=== PATIENT | male | born 1960 | race Caucasian/White ===

== ENCOUNTER 2023-03-28 01:48 | Inpatient (IN) ==
[2023-03-28] MEDS ORDERED: Heparin DRIP 25,000 UNITS BAG 25,000 UNITS/500 ML BAG IV SCH ×3 (02:45→03:15)
[2023-03-28 02:49] LABS: ABS Basophils 0.1 10^3/uL (0.0-0.1); ABS Eosinophils 0.3 10^3/uL (0.0-0.5); ABS Lymphocytes 2.6 10^3/uL (1.0-4.8); ABS Monocytes 0.4 10^3/uL (0.0-1.1); ABS Neutrophils 4.2 10^3/uL (1.5-7.6); Eosinophil % 3.7 %; Hematocrit 33.9 % (38-53); Hemoglobin 11.6 g/dL (13.2-16.3); Lymphocyte % 34.5 %; Mean Corpuscular Hemoglobin 34.3 pg (27-33); Mean Corpuscular Hgb Conc 34.4 g/dL (31-36); Mean Corpuscular Volume 99.8 fL (80-97); Mean Platelet Volume 7.1 fL (7.5-11.2); Platelet Count 248 10^3/uL (150-450); Red Cell Distribution Width 14.5 % (12-17); White Blood Count 7.6 10^3/uL (3.6-10.2)
[2023-03-28] MEDS ORDERED: Heparin 5000 UNITS/ML 1 mL VIAL IV SCH (03:00)
[2023-03-28] MEDS ORDERED: Pantoprazole VIAL 40 MG VIAL IV ONE (03:01)
[2023-03-28 03:05] LABS: Albumin 3.9 g/dL (3.2-5.2); Albumin/Globulin Ratio 1.7 (1-3); Calcium 9.2 mg/dL (8.6-10.3); Creatinine, Serum 0.9 mg/dL (0.67-1.17); Globulin 2.3 g/dL (2-4); Potassium 4.6 mmol/L (3.5-5.0); Total Bilirubin 0.3 mg/dL (0.2-1.0); Total Protein 6.2 g/dL (6.4-8.9); eGFR CKD-EPI 97.2 (>60)
[2023-03-28 03:28] LABS: Magnesium 1.5 mg/dL (1.9-2.7)
[2023-03-28 03:34] LABS: HDL Cholesterol 34.3 mg/dL; Phosphorus 2.7 mg/dL (2.5-5.0)
[2023-03-28] MEDS ORDERED: Magnesium Sulf 4 GM/100 ML IV 4,000 MG/100 ML BAG IVPB ONE (03:39)
[2023-03-28] MEDS ORDERED: Dextrose 50% Syringe 50 ml 25 GM/50 ML SYRINGE IV PUSH PRN (03:46)
[2023-03-28] MEDS ORDERED: nitroGLYCERIN DRIP 25,000 MCG/250 ML BTL IV SCH (04:00)
[2023-03-28 04:18] LABS: High Sensitivity Troponin 1 Hr 3046 pg/mL (<20)
[2023-03-28] MEDS ORDERED: Nicotine PATCH 21 MG/24 HR PATCH TRANSDERM SCH (08:00)
[2023-03-28] MEDS ORDERED: Sulfur Hexaflouride MICROSPHR 25 MG VIAL ONE (08:28)
[2023-03-28 10:25] LABS: Calcium 8.9 mg/dL (8.6-10.3); Creatinine, Serum 0.76 mg/dL (0.67-1.17); Magnesium 1.9 mg/dL (1.9-2.7); Potassium 4.3 mmol/L (3.5-5.0); eGFR CKD-EPI 102.3 (>60)
[2023-03-28] MEDS ORDERED: VERAPAMIL 2.5 MG/ML 2 ML VIAL ** 5 mg/2 ml ONE (10:58)
[2023-03-28] MEDS ORDERED: Midazolam 5 mg/5 ml VIAL 1 mg/ml 5 ml VIAL (5 mg) ONE (10:58)
[2023-03-28] MEDS ORDERED: Heparin 2 UNITS/ML 1000 mls 1,000 ML IV ONE ×2 (10:58→12:19)
[2023-03-28] MEDS ORDERED: Heparin 1,000 UNIT/ML 10 ml (10,000 UNITS) CATHLAB/DIALYSIS ONE (10:58)
[2023-03-28] MEDS ORDERED: Iohexol 350 (CONTRAST) 200 ML MDV IV ONE (10:59)
[2023-03-28] MEDS ORDERED: nitroGLYCERIN DRIP 25,000 MCG/250 ML BTL ONE (10:59)
[2023-03-28] MEDS ORDERED: Lidocaine 1% MPF 5 ML VIAL ONE (10:59)
[2023-03-28 11:48] LABS: Folate 11.1 ng/mL (5.90-24.80)
[2023-03-28] MEDS ORDERED: Bivalirudin 250 MG VIAL ONE ×2 (12:10→12:50)
[2023-03-28 13:14] LABS: TSH Ultra Thyroid Stim Horm 1.14 mcIU/mL (0.34-5.60)
[2023-03-28 13:15] LABS: Free T3 3.5 pg/mL (2.5-3.9)
[2023-03-28 13:16] LABS: Free T4 0.83 ng/dL (0.61-1.12)
[2023-03-28 13:21] LABS: Ferritin 57.3 ng/mL (24-336)
[2023-03-28] MEDS ORDERED: NS 0.9% 1000 ml BAG 1,000 ML IV SCH (13:30)
[2023-03-28] MEDS ORDERED: Nicotine PATCH 21 MG/24 HR PATCH ONE (16:47)
[2023-03-29 05:26] LABS: ABS Basophils 0.1 10^3/uL (0.0-0.1); ABS Eosinophils 0.2 10^3/uL (0.0-0.5); ABS Lymphocytes 1.9 10^3/uL (1.0-4.8); ABS Monocytes 0.4 10^3/uL (0.0-1.1); ABS Neutrophils 3.2 10^3/uL (1.5-7.6); Eosinophil % 2.7 %; Hematocrit 32.9 % (38-53); Hemoglobin 11.3 g/dL (13.2-16.3); Lymphocyte % 32.9 %; Mean Corpuscular Hemoglobin 34.2 pg (27-33); Mean Corpuscular Hgb Conc 34.4 g/dL (31-36); Mean Corpuscular Volume 99.2 fL (80-97); Mean Platelet Volume 6.9 fL (7.5-11.2); Platelet Count 219 10^3/uL (150-450); Red Blood Count 3.32 10^6/uL (4.06-5.63); Red Cell Distribution Width 14.5 % (12-17); White Blood Count 5.7 10^3/uL (3.6-10.2)
[2023-03-29 05:42] LABS: Albumin 3.6 g/dL (3.2-5.2); Albumin/Globulin Ratio 1.6 (1-3); Calcium 8.6 mg/dL (8.6-10.3); Creatinine, Serum 0.74 mg/dL (0.67-1.17); Globulin 2.2 g/dL (2-4); Magnesium 1.5 mg/dL (1.9-2.7); Potassium 3.8 mmol/L (3.5-5.0); Total Bilirubin 0.4 mg/dL (0.2-1.0); Total Protein 5.8 g/dL (6.4-8.9); eGFR CKD-EPI 103.1 (>60)
[2023-03-29] MEDS ORDERED: Potassium Chlor 20 meq TAB.ER PO ONE ×2 (06:07→07:33)
[2023-03-29] MEDS ORDERED: Magnesium Sulf 4 GM/100 ML IV 4,000 MG/100 ML BAG IVPB ONE (06:07)
[2023-03-29] MEDS ORDERED: Magnesium Sulfate 2 gm BAG 2 GM/50 ML BAG IVPB ONE (07:32)
[2023-03-29] MEDS ORDERED: Cyanocobalamin INJ 1,000 MCG/ML VIAL 1 ML VIAL IM ONE (07:51)
[2023-03-29] MEDS ORDERED: Nicotine PATCH 21 MG/24 HR PATCH TRANSDERM SCH (08:00)
[2023-03-29 13:39] VITALS: BP 127/88
== END 2023-03-29 13:40 | disposition home or self-care (01) | DRG 174 ==
LOC: ED 01:48 → EDHOLD 03:40 → ICU 05:40
PROVIDERS: ADMIT Internal Medicine; ATTEND Internal Medicine

== ENCOUNTER 2023-06-07 04:02 | Inpatient (IN) ==
[2023-06-07 04:27] LABS: ABS Eosinophils 0.2 10^3/uL (0.0-0.5); ABS Lymphocytes 1.5 10^3/uL (1.0-4.8); ABS Monocytes 0.5 10^3/uL (0.0-1.1); Eosinophil % 3.2 %; Hemoglobin 11.6 g/dL (13.2-16.3); Lymphocyte % 29.6 %; Mean Corpuscular Hemoglobin 32.1 pg (27-33); Mean Corpuscular Hgb Conc 33.9 g/dL (31-36); Mean Corpuscular Volume 94.5 fL (80-97); Mean Platelet Volume 6.9 fL (7.5-11.2); Platelet Count 222 10^3/uL (150-450); Red Cell Distribution Width 13.9 % (12-17); White Blood Count 5.1 10^3/uL (3.6-10.2)
[2023-06-07 04:32] LABS: INR 1.05 (0.88-1.18)
[2023-06-07 04:43] LABS: Albumin 3.8 g/dL (3.2-5.2); Albumin/Globulin Ratio 1.5 (1-3); Calcium 9.1 mg/dL (8.6-10.3); Creatinine, Serum 1.03 mg/dL (0.67-1.17); Globulin 2.6 g/dL (2-4); Total Bilirubin 0.5 mg/dL (0.2-1.0); Total Protein 6.4 g/dL (6.4-8.9); eGFR CKD-EPI 82.6 (>60)
[2023-06-07 04:51] LABS: Potassium 4.9 mmol/L (3.5-5.0)
[2023-06-07 05:52] LABS: High Sensitivity Troponin 1 Hr 18 pg/mL (<20)
[2023-06-07] MEDS ORDERED: Enoxaparin 40 MG/0.4 ML SYR SUBCUT SCH (08:00)
[2023-06-07] MEDS ORDERED: Albuterol HFA INHALER 8 gm MDI INH PRN (08:02)
[2023-06-07] MEDS: Sulfamethox/Trimethoprim DS TAB 800/160 mg PO SCH ×2 (09:44→20:02)
[2023-06-07] MEDS ORDERED: Nitro 2% OINT (Nitroglycerin) 1 INCH/PAK TOPICAL ONE (09:56)
[2023-06-07] MEDS: Heparin DRIP 25,000 UNITS BAG 25,000 UNITS/500 ML BAG IV SCH (11:17)
[2023-06-07 11:38] LABS: HDL Cholesterol 38.2 mg/dL
[2023-06-07 12:19] LABS: Ferritin 68.7 ng/mL (24-336)
[2023-06-07] MEDS: Heparin 5000 UNITS/ML 1 mL VIAL IV SCH (17:45)
[2023-06-07] MEDS ORDERED: Alogliptin 25 mg TAB (NF) PO SCH (21:00)
[2023-06-08 06:54] LABS: ABS Eosinophils 0.1 10^3/uL (0.0-0.5); ABS Lymphocytes 1.4 10^3/uL (1.0-4.8); ABS Monocytes 0.4 10^3/uL (0.0-1.1); ABS Neutrophils 3.8 10^3/uL (1.5-7.6); Eosinophil % 2.1 %; Hematocrit 34.4 % (38-53); Hemoglobin 11.7 g/dL (13.2-16.3); Lymphocyte % 23.7 %; Mean Corpuscular Hemoglobin 32.4 pg (27-33); Mean Corpuscular Volume 95.4 fL (80-97); Mean Platelet Volume 7.2 fL (7.5-11.2); Nucleated Red Blood Cells % 0.1 /100 WBC (0.0-0.4); Platelet Count 229 10^3/uL (150-450); Red Cell Distribution Width 13.7 % (12-17); White Blood Count 5.7 10^3/uL (3.6-10.2)
[2023-06-08 07:06] LABS: Calcium 9.5 mg/dL (8.6-10.3); Creatinine, Serum 0.95 mg/dL (0.67-1.17); Magnesium 1.4 mg/dL (1.9-2.7); Potassium 4.4 mmol/L (3.5-5.0); eGFR CKD-EPI 91.1 (>60)
[2023-06-08] MEDS: Heparin DRIP 25,000 UNITS BAG 25,000 UNITS/500 ML BAG IV SCH (07:14)
[2023-06-08] MEDS: Nicotine PATCH 21 MG/24 HR PATCH TRANSDERM SCH (07:22)
[2023-06-08] MEDS: Sulfamethox/Trimethoprim DS TAB 800/160 mg PO SCH ×2 (08:04→20:07)
[2023-06-08] MEDS ORDERED: Magnesium Sulfate IV 3 GM in NS 0.9% 100 ml BAG 100 ML IVPB ONE (09:00)
[2023-06-09] MEDS: Heparin DRIP 25,000 UNITS BAG 25,000 UNITS/500 ML BAG IV SCH ×2 (01:46→18:52)
[2023-06-09] MEDS: Heparin 5000 UNITS/ML 1 mL VIAL IV SCH (06:40)
[2023-06-09 07:00] LABS: Calcium 9.4 mg/dL (8.6-10.3); Creatinine, Serum 1.09 mg/dL (0.67-1.17); Magnesium 1.8 mg/dL (1.9-2.7); Potassium 4.5 mmol/L (3.5-5.0); eGFR CKD-EPI 77.2 (>60)
[2023-06-09] MEDS: Nicotine PATCH 21 MG/24 HR PATCH TRANSDERM SCH (07:30)
[2023-06-09] MEDS: Sulfamethox/Trimethoprim DS TAB 800/160 mg PO SCH ×2 (07:32→20:34)
[2023-06-09] MEDS ORDERED: Midazolam 5 mg/5 ml VIAL 1 mg/ml 5 ml VIAL (5 mg) ONE (08:23)
[2023-06-09] MEDS ORDERED: VERAPAMIL 2.5 MG/ML 2 ML VIAL ** 5 mg/2 ml ONE (08:23)
[2023-06-09] MEDS ORDERED: fentaNYL 100 mcg/2 ml 50 MCG/ML VIAL ONE (08:23)
[2023-06-09] MEDS ORDERED: Iohexol 350 (CONTRAST) 200 ML MDV IV ONE (08:24)
[2023-06-09] MEDS ORDERED: Heparin 2 UNITS/ML 1000 mls 0 ML IV ONE (08:24)
[2023-06-09] MEDS ORDERED: Heparin 1,000 UNIT/ML 10 ml (10,000 UNITS) CATHLAB/DIALYSIS ONE (08:24)
[2023-06-09] MEDS ORDERED: nitroGLYCERIN DRIP 0 MCG/0 ML BTL ONE (08:24)
[2023-06-09] MEDS ORDERED: Lidocaine 1% MPF 5 ML VIAL ONE (08:25)
[2023-06-09] MEDS ORDERED: fentaNYL 100 mcg/2 ml 50 MCG/ML VIAL IV SLOW PU ONE (08:51)
[2023-06-09] MEDS ORDERED: Midazolam 10 mg/10 ml VIAL 1 mg/ml 10 ml VIAL (10 mg) IV SLOW PU ONE (08:51)
[2023-06-09] MEDS ORDERED: Magnesium Sulfate 2 gm BAG 2 GM/50 ML BAG IVPB ONE (09:05)
[2023-06-09 10:21] LABS: Folate 11.57 ng/mL (5.90-24.80)
[2023-06-10 05:59] LABS: ABS Eosinophils 0.1 10^3/uL (0.0-0.5); ABS Lymphocytes 1.9 10^3/uL (1.0-4.8); ABS Monocytes 0.3 10^3/uL (0.0-1.1); ABS Neutrophils 2.3 10^3/uL (1.5-7.6); Eosinophil % 3.1 %; Hematocrit 33.4 % (38-53); Hemoglobin 11.3 g/dL (13.2-16.3); Mean Corpuscular Hemoglobin 32.5 pg (27-33); Mean Corpuscular Hgb Conc 33.9 g/dL (31-36); Mean Corpuscular Volume 95.8 fL (80-97); Mean Platelet Volume 6.8 fL (7.5-11.2); Platelet Count 219 10^3/uL (150-450); Red Blood Count 3.48 10^6/uL (4.06-5.63); Red Cell Distribution Width 14.2 % (12-17); White Blood Count 4.7 10^3/uL (3.6-10.2)
[2023-06-10 06:12] LABS: Creatinine, Serum 1.37 mg/dL (0.67-1.17); Potassium 4.6 mmol/L (3.5-5.0); eGFR CKD-EPI 58.7 (>60)
[2023-06-10] MEDS: Sulfamethox/Trimethoprim DS TAB 800/160 mg PO SCH ×2 (07:26→21:22)
[2023-06-10] MEDS: Nicotine PATCH 21 MG/24 HR PATCH TRANSDERM SCH (07:27)
[2023-06-10] MEDS ORDERED: Heparin 2 UNITS/ML 1000 mls 2,000 ML IV ONE (07:52)
[2023-06-10] MEDS ORDERED: Heparin 1,000 UNIT/ML 10 ml (10,000 UNITS) CATHLAB/DIALYSIS ONE (07:52)
[2023-06-10] MEDS ORDERED: nitroGLYCERIN DRIP 25,000 MCG/250 ML BTL ONE (07:52)
[2023-06-10] MEDS ORDERED: VERAPAMIL 2.5 MG/ML 2 ML VIAL ** 5 mg/2 ml ONE (07:52)
[2023-06-10] MEDS ORDERED: Midazolam 5 mg/5 ml VIAL 1 mg/ml 5 ml VIAL (5 mg) ONE (07:52)
[2023-06-10] MEDS ORDERED: fentaNYL 100 mcg/2 ml 50 MCG/ML VIAL ONE (07:52)
[2023-06-10] MEDS ORDERED: Lidocaine 1% MPF 5 ML VIAL ONE (07:52)
[2023-06-10] MEDS ORDERED: Iohexol 350 (CONTRAST) 200 ML MDV IV ONE (07:53)
[2023-06-10] MEDS ORDERED: Iohexol 350 (CONTRAST) 100 ML PAK IV ONE (07:53)
[2023-06-10] MEDS ORDERED: Iodixanol 320 (CONTRAST) 100 ML SDV ONE (08:07)
[2023-06-10] MEDS ORDERED: Heparin 2 UNITS/ML 1000 mls 1,000 ML IV ONE (08:43)
[2023-06-10] MEDS ORDERED: NS 0.9% 1000 ml BAG 1,000 ML IV SCH (09:30)
[2023-06-10] MEDS ORDERED: Dextrose 50% Syringe 50 ml 25 GM/50 ML SYRINGE IV PUSH PRN (17:50)
[2023-06-11 04:31] LABS: ABS Eosinophils 0.2 10^3/uL (0.0-0.5); ABS Lymphocytes 1.7 10^3/uL (1.0-4.8); ABS Monocytes 0.4 10^3/uL (0.0-1.1); ABS Neutrophils 2.3 10^3/uL (1.5-7.6); Eosinophil % 3.6 %; Hematocrit 31.1 % (38-53); Hemoglobin 10.7 g/dL (13.2-16.3); Lymphocyte % 37.1 %; Mean Corpuscular Hgb Conc 34.4 g/dL (31-36); Mean Corpuscular Volume 95.8 fL (80-97); Mean Platelet Volume 6.9 fL (7.5-11.2); Platelet Count 184 10^3/uL (150-450); Red Blood Count 3.25 10^6/uL (4.06-5.63); Red Cell Distribution Width 14.1 % (12-17); White Blood Count 4.6 10^3/uL (3.6-10.2)
[2023-06-11 04:47] LABS: Calcium 8.8 mg/dL (8.6-10.3); Creatinine, Serum 1.08 mg/dL (0.67-1.17); Magnesium 1.8 mg/dL (1.9-2.7); Potassium 4.7 mmol/L (3.5-5.0); eGFR CKD-EPI 78.1 (>60)
[2023-06-11] MEDS ORDERED: Magnesium Sulfate 2 gm BAG 2 GM/50 ML BAG IVPB ONE (07:02)
[2023-06-11] MEDS: Nicotine PATCH 21 MG/24 HR PATCH TRANSDERM SCH (07:58)
[2023-06-11] MEDS: Sulfamethox/Trimethoprim DS TAB 800/160 mg PO SCH (08:00)
[2023-06-11 09:25] VITALS: BP 102/63
== END 2023-06-11 11:35 | disposition home or self-care (01) | DRG 175 ==
LOC: EDHOLD 04:02 → ED 04:02 → SUATTDRO 07:42 → MEDTELE 14:56 → ICU 06-10 09:27 → SUATTDRO 06-10 09:30
PROVIDERS: ADMIT Student in an Organized Health Care Education/Training Program; ATTEND Internal Medicine